=== PATIENT | male | born 2000 | race Hispanic/Latino ===

== ENCOUNTER 2024-08-07 15:10 | Outpatient (CLI) | payer BC | END 2024-08-07 15:11 | disposition home or self-care (01) | LOC: CSHMRI 15:10 | DX: E29.1 Testicular hypofunction (principal) | CPT/HCPCS: 70551 ==

== ENCOUNTER 2025-07-17 07:46 | Outpatient (CLI) | payer BC | END 2025-07-17 07:47 | disposition home or self-care (01) | LOC: CSHULT 07:46 | DX: R74.8 Abnormal levels of other serum enzymes (principal); K76.0 Fatty (change of) liver, not elsewhere classified | CPT/HCPCS: 76705 ==